=== PATIENT | female | born 1970 | race Two or more races ===

== ENCOUNTER 2017-07-16 13:57 | Emergency (ER) | payer OTHER ==
[2017-07-16 14:10] VITALS: BP 138/84; PULSE 75; TEMP 98.4; BMI 27.4
--- NOTE | 2017-07-20 12:55 | EKG ---
Test Reason : Blood Pressure : / mmHG Vent. Rate : 074 BPM Atrial Rate : 074 BPM P-R Int : 124 ms QRS Dur : 082 ms QT Int : 400 ms P-R-T Axes : 053 036 053 degrees QTc Int : 444 ms NORMAL SINUS RHYTHM LOW VOLTAGE QRS POOR R WAVE PROGRESSION NO PREVIOUS ECGS AVAILABLE Confirmed by MD ANDIE, IVY ([id number]) on 07/20/2017 12:55:10 PM Referred By: Confirmed By:IVY CHAVES MD
== END 2017-07-16 16:30 | disposition left against medical advice (07) ==
LOC: JER 13:57
DX: Z53.21 Procedure and treatment not carried out due to patient leaving prior to being seen by health care provider (principal)
CPT/HCPCS: 93005; 93010; 99281-25